=== PATIENT | male | born 1955 | race Caucasian/White ===

== ENCOUNTER → 2024-03-20 09:44 | Outpatient (REF) | payer BC, SELFPAY | LOC: RCS 09:44 | PROVIDERS: ATTENDING PHYSICIAN Internal Medicine | DX: I10 Essential (primary) hypertension (principal); R06.02 Shortness of breath; E78.00 Pure hypercholesterolemia, unspecified | CPT/HCPCS: 93017 ==

== ENCOUNTER → 2024-04-07 08:11 | Outpatient (REF) | payer BC, SELFPAY | LOC: DHCBC/DCA 08:11 | PROVIDERS: ATTENDING PHYSICIAN Internal Medicine; FAMILY PHYSICIAN Internal Medicine Endocrinology, Diabetes & Metabolism | DX: R94.39 Abnormal result of other cardiovascular function study (principal); R06.02 Shortness of breath; I10 Essential (primary) hypertension | CPT/HCPCS: 78452; 93017; A9500 ==

== ENCOUNTER → 2024-04-20 12:51 | Outpatient (REF) | payer BC, SELFPAY | LOC: RCS 12:51 | PROVIDERS: ATTENDING PHYSICIAN Internal Medicine | DX: I10 Essential (primary) hypertension (principal); R06.02 Shortness of breath; E78.00 Pure hypercholesterolemia, unspecified | CPT/HCPCS: 93306 ==

== ENCOUNTER → 2024-05-12 10:05 | Outpatient (REF) | payer BC, SELFPAY | LOC: RAD 10:05 | PROVIDERS: ATTENDING PHYSICIAN Internal Medicine | DX: I10 Essential (primary) hypertension (principal); E78.00 Pure hypercholesterolemia, unspecified; E10.59 Type 1 diabetes mellitus with other circulatory complications; R93.1 Abnormal findings on diagnostic imaging of heart and coronary circulation | CPT/HCPCS: 75574; Q9967 ==

== ENCOUNTER 2024-06-02 06:21 | Day surgery (SDC) | payer BC, SELFPAY ==
[2024-05-24 13:24] VITALS: BMI 33.1
[2024-05-24 14:07] LABS: % Basophils 0.5 % (0-2); % Eosinophils 1.5 % (0-6); % Immature Granulocytes 0.3 % (0-0.5); % Monocytes 6.3 % (1.7-9.3); % Neutrophils 67.4 % (42.2-75.2); Absolute Basophils 0.1 10^3/uL (0-0.2); Absolute Eosinophils 0.1 10^3/uL (0-0.7); Absolute Lymphocytes 2.2 10^3/uL (1.2-3.4); Absolute Monocytes 0.6 10^3/uL (0.1-0.6); Absolute Neutrophils 6.2 10^3/uL (1.4-6.5); Hematocrit 41.7 % (39.0-52.0); Hemoglobin 14.4 g/dL (13.0-18.0); Mean Corp Hgb Conc. 34.5 g/dL (33.0-37.0); Mean Corpuscular Hgb 28.8 pg (27.0-31.0); Mean Corpuscular Volume 83.4 fL (80.0-94.0); Mean Platelet Volume 10.7 fL (7.4-10.4); Nucleated Red Blood Cells % 0 % (-); Platelet Count 310 10^3/uL (130-400); Red Cell Dist. Width 13.4 % (11.5-14.5); White Blood Cell Count 9.2 10^3/uL (4.8-10.8)
[2024-05-24 14:21] LABS: ALT (SGPT) 27 U/L (0-50); AST (SGOT) 27 U/L (17-59); Albumin 4.4 g/dl (3.5-5.0); Alkaline Phosphatase 72 U/L (38-126); Blood Urea Nitrogen 14 mg/dl (9-20); Calcium 9.5 mg/dl (8.4-10.2); Carbon Dioxide 27 mmol/L (22-30); Chloride 101 mmol/L (98-107); Estimated Creatinine Clearance 83 ml/min; Glucose 90 mg/dl (70-99); Potassium 4.3 mmol/L (3.5-5.1); Sodium 137 mmol/L (135-145); Total Bilirubin 0.6 mg/dl (0.2-1.3); Total Protein 6.9 g/dl (6.3-8.2); eGFR > 60.00
[2024-06-02] VITALS (15 sets, daily range): BP systolic 98–132; BP diastolic 55–90; BMI 33.4
[2024-06-02 07:18] LABS: Glucose - Point of Care 156 mg/dl (70-99)
[2024-06-02] MEDS: LOW STRENGTH ASPIRIN 243 MG PO (07:29)
[2024-06-02] MEDS: NSS 1000 IV (09:07)
--- NOTE | 2024-06-02 09:16 | ITS.CL.PN ---
[employer] - Procedure Note
Procedure
Procedure Note:
CARDIAC CATHETERIZATION REPORT
Date of Procedure: 06/02/24
Referring: Dr. Bill Peterson MD, PhD
INDICATION: positive stress test, CT coronary angio with 2 vessel obstructive disease
PROCEDURE:
1. Left heart catheterization
2. Coronary angiography
ACCESS:
6 [place] right radial artery (closed with TR band)
CATHETERS:
1. 6 [place] JR4
2. 6 [place] JL3.5
HEMODYNAMIC DATA
LV 104/9 (EDP 12) mmHg
AO 97/53 (mean 70) mmHg
CORONARY ANGIOGRAPHY:
LM: large, normal
LAD: large vessel giving rise to a large D1, small D2, and wrapping around the apex. There are mild luminal irregularities without obstructive coronary artery disease.
LCx: large vessel giving rise to a small OM1, small OM2, and large OM3. There are mild luminal irregularities without obstructive coronary artery disease.
RCA: large dominant vessel giving rise to a moderate caliber RPDA and three RPL branches. There is mild ostial narrowing with normal reflux and no dampening on engagement, a 30% stenosis in the distal RCA, and otherwise mild luminal irregularities.
RADIATION:
Radiation (mGy): 309
DAP (cm2.Gy): 23
Fluoroscopy time (minutes): 1.9
CONCLUSIONS
1. Non-obstructive coronary artery disease in a right dominant system (disease severity over-estimated by CT coronary angiography)
2. Normal LV filling pressure and no significant gradient on pullback across the aortic valve
RECOMMENDATIONS:
1. Expectant management after cardiac catheterization via right radial approach.
2. Secondary prevention of coronary artery disease with high intensity statin, asa, and aggressive lifestyle optimization
Copy to: Dr. Bill Peterson MD, PhD (supervisor typesetting)
Signed: Bubba Quevedo MD, PhD
== END 2024-06-02 11:50 | disposition home or self-care (01) ==
LOC: CATH 06:21
PROVIDERS: ATTENDING PHYSICIAN Student in an Organized Health Care Education/Training Program; FAMILY PHYSICIAN Internal Medicine Endocrinology, Diabetes & Metabolism; OTHER PHYSICIAN Internal Medicine
DX: I25.10 Atherosclerotic heart disease of native coronary artery without angina pectoris (principal); R94.39 Abnormal result of other cardiovascular function study; R06.02 Shortness of breath; I10 Essential (primary) hypertension; E10.9 Type 1 diabetes mellitus without complications; E66.9 Obesity, unspecified; Z68.33 Body mass index [BMI] 33.0-33.9, adult; Z79.4 Long term (current) use of insulin; Z79.82 Long term (current) use of aspirin
CPT/HCPCS: 36415; 80053; 82962; 85025; 93005; 93458; C1894; Q9967

== ENCOUNTER 2025-06-01 06:28 | Day surgery (SDC) | payer BC, SELFPAY ==
[2025-06-01 08:04] LABS: Glucose - Point of Care 143 mg/dl (70-99)
== END 2025-06-01 10:58 | disposition home or self-care (01) ==
LOC: GI 06:28
PROVIDERS: ATTENDING PHYSICIAN Internal Medicine Gastroenterology
DX: Z12.11 Encounter for screening for malignant neoplasm of colon (principal); D12.0 Benign neoplasm of cecum; D12.2 Benign neoplasm of ascending colon; K63.5 Polyp of colon; K64.9 Unspecified hemorrhoids; K22.2 Esophageal obstruction; K20.90 Esophagitis, unspecified without bleeding; K44.9 Diaphragmatic hernia without obstruction or gangrene; K31.7 Polyp of stomach and duodenum; D17.5 Benign lipomatous neoplasm of intra-abdominal organs; R12 Heartburn; R07.89 Other chest pain
CPT/HCPCS: 45385; 45380; 43239; 82962; 88305